=== PATIENT | female | born 1980 | race Caucasian/White ===

== ENCOUNTER 2019-05-09 16:47 | Emergency (ER) | payer MEDICAID ==
[~2019-05-09] VITALS: Ht 165.1 cm; Wt 110.7 kg
[2019-05-09 16:54] VITALS: Ht 165.1 cm; Wt 110.7 kg
[2019-05-09 18:36] VITALS: BP 124/69
== END 2019-05-09 18:36 | disposition home or self-care (01) ==
LOC: ED 16:47
DX: J11.1 Influenza due to unidentified influenza virus with other respiratory manifestations (principal)

== ENCOUNTER 2019-08-26 12:49 | Emergency (ER) | payer MEDICAID ==
[~2019-08-26] VITALS: Ht 167.6 cm; Wt 111.6 kg
[2019-08-26 13:04] VITALS: BP 122/73; Ht 167.6 cm; Wt 111.6 kg
== END 2019-08-26 14:25 | disposition home or self-care (01) ==
LOC: ED 12:49
DX: R21 Rash and other nonspecific skin eruption (principal); E78.00 Pure hypercholesterolemia, unspecified
CPT/HCPCS: J7512